=== PATIENT | male | born 1945 | race Caucasian/White ===

== ENCOUNTER 2022-06-25 14:03 | Outpatient (CLI) | payer MEDICARE, BC, SELFPAY ==
--- NOTE | 2022-06-25 15:40 | CRLHL7_ITS ---
For Patients: As a result of the Cures Act, medical imaging exams and procedure reports are released immediately into your electronic medical record. You may view this report before your referring provider. If you have questions, please contact your health care provider. Indication: Nonhealing ulcer. Gout, calcinosis.. Technique: Right elbow, 3 views. Comparison: None. Findings: Bones: No acute fractures or dislocations identified. No erosive changes.. Joint spaces: Moderate to severe degenerative changes throughout the elbow joint spaces.. Soft tissues: Soft tissue swelling surrounding the elbow. There is ulceration at the soft tissues overlying the olecranon with small nodular soft tissue densities, nonspecific. 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 Correlate with fluid aspiration. Dictated by Sofie Neri MD @ 06/25/2022 5:07:43 PM (Electronically Signed)
== END 2022-06-25 14:04 | disposition home or self-care (01) ==
PROVIDERS: Visit Provider Nurse Practitioner Family
DX: M1A.0211 Idiopathic chronic gout, right elbow, with tophus (tophi) (principal); E11.622 Type 2 diabetes mellitus with other skin ulcer
CPT/HCPCS: 11042; 73080; 87070; 88305; 88313; 99212

== ENCOUNTER 2022-07-02 13:46 | Outpatient (CLI) | payer MEDICARE, BC, SELFPAY | END 2022-07-02 13:47 | disposition home or self-care (01) | LOC: WOUND 13:46 | PROVIDERS: Visit Provider Nurse Practitioner Family | DX: E11.622 Type 2 diabetes mellitus with other skin ulcer (principal); M1A.0211 Idiopathic chronic gout, right elbow, with tophus (tophi) | CPT/HCPCS: 11042 ==

== ENCOUNTER 2022-07-09 13:57 | Outpatient (CLI) | payer MEDICARE, BC, SELFPAY | END 2022-07-09 13:58 | disposition home or self-care (01) | LOC: WOUND 13:57 | PROVIDERS: Visit Provider Nurse Practitioner Family | DX: M1A.0211 Idiopathic chronic gout, right elbow, with tophus (tophi) (principal); E11.622 Type 2 diabetes mellitus with other skin ulcer | CPT/HCPCS: 11042 ==

== ENCOUNTER 2022-07-16 13:59 | Outpatient (CLI) | payer MEDICARE, BC, SELFPAY | END 2022-07-16 14:00 | disposition home or self-care (01) | LOC: WOUND 13:59 | PROVIDERS: Visit Provider Nurse Practitioner Family | DX: M1A.0211 Idiopathic chronic gout, right elbow, with tophus (tophi) (principal); L94.2 Calcinosis cutis; E11.622 Type 2 diabetes mellitus with other skin ulcer; S60.445A External constriction of left ring finger, initial encounter; W49.04XA Ring or other jewelry causing external constriction, initial encounter | CPT/HCPCS: 11042; 99212 ==

== ENCOUNTER 2022-07-23 13:42 | Outpatient (CLI) | payer MEDICARE, BC, SELFPAY | END 2022-07-23 13:43 | disposition home or self-care (01) | LOC: WOUND 13:42 | PROVIDERS: Visit Provider Nurse Practitioner Family | DX: M1A.0211 Idiopathic chronic gout, right elbow, with tophus (tophi) (principal) | CPT/HCPCS: 11042 ==

== ENCOUNTER 2022-07-30 13:38 | Outpatient (CLI) | payer MEDICARE, BC, SELFPAY | END 2022-07-30 13:39 | disposition home or self-care (01) | LOC: WOUND 13:38 | PROVIDERS: Visit Provider Nurse Practitioner Family | DX: M1A.0211 Idiopathic chronic gout, right elbow, with tophus (tophi) (principal); E11.622 Type 2 diabetes mellitus with other skin ulcer | CPT/HCPCS: 11042 ==

== ENCOUNTER 2022-08-06 13:19 | Outpatient (CLI) | payer MEDICARE, BC, SELFPAY | END 2022-08-06 13:20 | disposition home or self-care (01) | LOC: WOUND 13:19 | PROVIDERS: Visit Provider Nurse Practitioner Family | DX: M1A.0211 Idiopathic chronic gout, right elbow, with tophus (tophi) (principal); E11.9 Type 2 diabetes mellitus without complications | CPT/HCPCS: 11042 ==

== ENCOUNTER 2022-08-13 13:42 | Outpatient (CLI) | payer MEDICARE, BC, SELFPAY | END 2022-08-13 13:43 | disposition home or self-care (01) | LOC: WOUND 13:43 | PROVIDERS: Visit Provider Nurse Practitioner Family | DX: M1A.0211 Idiopathic chronic gout, right elbow, with tophus (tophi) (principal); E11.622 Type 2 diabetes mellitus with other skin ulcer | CPT/HCPCS: 11043 ==

== ENCOUNTER 2022-08-20 13:34 | Outpatient (CLI) | payer MEDICARE, BC, SELFPAY | END 2022-08-20 13:35 | disposition home or self-care (01) | LOC: WOUND 13:34 | PROVIDERS: Visit Provider Nurse Practitioner Family | DX: M1A.0211 Idiopathic chronic gout, right elbow, with tophus (tophi) (principal); E11.622 Type 2 diabetes mellitus with other skin ulcer | CPT/HCPCS: 11042 ==

== ENCOUNTER 2022-10-01 12:53 | Outpatient (CLI) | payer MEDICARE, BC, SELFPAY | END 2022-10-01 12:54 | disposition home or self-care (01) | LOC: WOUND 12:53 | PROVIDERS: Visit Provider Nurse Practitioner Family | DX: M1A.0211 Idiopathic chronic gout, right elbow, with tophus (tophi) (principal) | CPT/HCPCS: 11042 ==

== ENCOUNTER 2022-10-15 12:52 | Outpatient (CLI) | payer MEDICARE, BC, SELFPAY | END 2022-10-15 12:53 | disposition home or self-care (01) | LOC: WOUND 12:52 | PROVIDERS: Visit Provider Family Medicine | DX: M1A.0211 Idiopathic chronic gout, right elbow, with tophus (tophi) | CPT/HCPCS: 11042 ==

== ENCOUNTER 2022-10-29 15:00 | Outpatient (CLI) | payer MEDICARE, BC, SELFPAY | END 2022-10-29 16:41 | disposition home or self-care (01) | LOC: WOUND 12-02 14:21 | PROVIDERS: Visit Provider Nurse Practitioner Family | DX: M1A.0211 Idiopathic chronic gout, right elbow, with tophus (tophi); E11.622 Type 2 diabetes mellitus with other skin ulcer | CPT/HCPCS: 97597 ==

== ENCOUNTER 2022-11-12 12:41 | Outpatient (CLI) | payer MEDICARE, BC, SELFPAY | END 2022-11-12 12:42 | disposition home or self-care (01) | LOC: WOUND 12:42 | PROVIDERS: Visit Provider Nurse Practitioner Family | DX: E11.622 Type 2 diabetes mellitus with other skin ulcer (principal); M1A.0211 Idiopathic chronic gout, right elbow, with tophus (tophi) | CPT/HCPCS: 97597 ==

== ENCOUNTER 2022-11-26 13:02 | Outpatient (CLI) | payer MEDICARE, BC, SELFPAY | END 2022-11-26 13:03 | disposition home or self-care (01) | LOC: WOUND 13:02 | PROVIDERS: Visit Provider Nurse Practitioner Family | DX: M1A.0211 Idiopathic chronic gout, right elbow, with tophus (tophi) (principal); E11.622 Type 2 diabetes mellitus with other skin ulcer | CPT/HCPCS: 97597 ==

== ENCOUNTER 2022-12-10 12:47 | Outpatient (CLI) | payer MEDICARE, BC, SELFPAY | END 2022-12-10 12:48 | disposition home or self-care (01) | LOC: WOUND 12:47 | PROVIDERS: Visit Provider Nurse Practitioner Family | DX: M1A.0211 Idiopathic chronic gout, right elbow, with tophus (tophi) (principal); E11.622 Type 2 diabetes mellitus with other skin ulcer; R21 Rash and other nonspecific skin eruption | CPT/HCPCS: 99213 ==